=== PATIENT | male | born 1990 | race American Indian/Alaskan Native ===

== ENCOUNTER 2025-04-07 04:19 | Emergency (ER) | payer MEDICAID, SELFPAY ==
[2025-04-07 04:19] VITALS: BMI 23.3
[2025-04-07 04:40] VITALS: BP 161/95; BP 171/104; PULSE 50; RESP 17; TEMP 36.6; O2SAT 99
--- NOTE | 2025-04-07 04:54 | EKG_ITS ---
[facility] Test Date: 2025-04-07 Pat Name: GURMEET LANGFORD Department: Room: - Gender: Male Director Learning Services: : 1990 Requested By: Jerzy Mehta Order Number: [id number] Reading MD: Jerzy Mehta Measurements Intervals [place] Rate: 54 P: 47 WI: 143 QRS: 39 QRSD: 92 T: 39 QT: 359 QTc: 343 Interpretive Statements SINUS BRADYCARDIA No previous ECG available for comparison /store/S0/[id number]/ecg/[id number]
--- NOTE | 2025-04-07 04:54 | XR_ITS ---
Examination: Abdomen sonogram, Limited Date and time of exam: April 07, 2025, 0503 hours INDICATIONS: Onset right upper abdominal pain today Technique: Real-time crowell scale transabdominal sonographic images of the upper abdomen obtained. Findings: 15 mm gallstone. Normal gallbladder wall. Normal common bile duct 0.3 cm. Pancreatic head 3.1 cm Liver 17.7 cm fatty infiltration no focal liver lesions Normal hepatopedal portal venous flow. Patent IVC. IMPRESSION: Cholelithiasis, negative for cholecystitis
--- NOTE | 2025-04-07 04:54 | XR_ITS ---
Examination: PA chest single view TECHNIQUE: Upright PA chest single view Date and time: April 07, 2025, 0454 hours INDICATIONS: Chest pain nausea vomiting today. FINDINGS: Normal heart size. Lungs are clear. Osseous structures are intact. IMPRESSION: No active disease.
--- NOTE | 2025-04-07 04:55 | PD.EDRME ---
Rapid Medical Screening Exam [facility] Arrival date/time: 04/07/25 04:19 34M with history of previous meth use presents to ED with 1 day of R lower chest/RUQ pain and N/V. Chief Complaint: Abdominal Pain Vital signs: Vital Signs Temperature 97.8 F 04/07/25 04:40 Pulse Rate 50 L 04/07/25 04:40 Respiratory Rate 17 04/07/25 04:40 Blood Pressure 171/104 H 04/07/25 04:40 Pulse Oximetry (%) 99 04/07/25 04:40 Oxygen Delivery Method Room Air 04/07/25 04:40
--- NOTE | 2025-04-07 05:57 | PRELIM_ITS ---
Right upper quadrant abdominal ultrasound. April 07, 2025 0503 hours Clinical history: RUQ/epigastric pain Technique: Grayscale and color flow images of the right upper quadrant are provided. Hepatic and portal veins were also imaged with color flow images. Comparison:No prior study is available for comparison. Findings: The liver measures 17.7 cm, with increased echogenicity. No intrahepatic biliary ductal dilatation.Agallstone, measuring 1.4x1.5x0.8 cm, is seen within the neck of the gallbladder, without evidence of gallbladder wall thickening or pericholecystic fluid.The common bile duct is normal in caliber at 3 mm.The main portal vein is patent and demonstrates hepatopetal flow.The pancreas is unremarkable to the extent visualized. Impression: Cholelithiasis without evidence of acute cholecystitis. Hepatic steatosis. Report Electronically Signed By: Amish Reyes 04/07/2025 5:56:42 AM [EST]
[2025-04-07 06:33] LABS: Collection Type, Urine Clean Catch; RBC,Urine 0 /hpf (0-3); Squamous Epithelial Cell,Urine 0 /hpf (0-5); WBC,Urine 0 /hpf (0-5)
[2025-04-07 06:44] LABS: Amorphous Crystals,Urine Present (Absent); Bilirubin,Urine Negative (Negative); Blood,Urine Negative (Negative); Clarity,Urine Turbid (Clear/Hazy); Color,Urine Lt-Yellow (Lt Yel-Yel); Culture Indicated,Urine Not Indicated; Glucose, Urine Negative (Negative); Ketones,Urine Negative (Negative); Leukocyte Esterase,Urine Negative (Negative); Nitrite,Urine Negative (Negative); PH,Urine 7.0 (5.0-7.0); Protein,Urine Negative (Neg - Trace); Specific Gravity,Urine 1.021 (1.001-1.035); Urobilinogen,Urine Negative mg/dL (0.0-1.0)
[2025-04-07 06:49] LABS: Basophils # (Auto) 0.0 Thou/mm3 (0.0-0.2); Basophils % (Auto) 1 % (0-2.5); Eosinophils # (Auto) 0.1 Thou/mm3 (0.0-0.5); Eosinophils % (Auto) 1 % (0-10); Hematocrit 44.3 % (41.0-53.0); Hemoglobin 14.9 g/dL (13.5-16.0); Immature Granulocytes Auto 0.02 Thou/mm3 (0.00-0.00); Lymphocytes # (Auto) 1.5 Thou/mm3 (1.0-4.8); Lymphocytes % (Auto) 22 % (10-50); Mean Corpuscular HGB Conc 33.6 g/dl (31.0-37.0); Mean Corpuscular Hemoglobin 29.3 pg (25.0-35.0); Mean Corpuscular Volume 87 fL (80-100); Monocytes # (Auto) 0.4 Thou/mm3 (0.0-0.8); Monocytes % (Auto) 5 % (0-12); Neutrophils # (Auto) 5.0 Thou/mm3 (1.8-7.7); Neutrophils % (Auto) 71 % (37-80); Nucleated Red Blood Cell # 0.00 Thou/mm3 (0.00-0.00); Nucleated Red Blood Cell % 0 /100 WBC (0); Platelet Count 279 Thou/mm3 (140-440); RDW Standard Deviation 40.9 fL (35.1-43.9); Red Blood Count 5.09 Miln/mm3 (4.50-5.90); White Blood Count 7.1 Thou/mm3 (3.8-10.6)
[2025-04-07 06:51] LABS: Amphetamine/Methamp Scrn,U Negative (Negative); Barbiturate Screen,Urine Negative (Negative); Benzodiazepines Screen,Urine Negative (Negative); Benzoylecgonine Screen, Ur Negative (Negative); Fentanyl Screen,Urine Negative (Negative); Opiate Screen,Urine Negative (Negative); THC Screen,Urine Negative (Negative)
[2025-04-07 07:10] LABS: Alanine Aminotransferase 22 U/L (10-49); Albumin, Serum 4.4 gm/dL (3.5-5.0); Albumin/Globulin Ratio 1.6 (1.2-2.2); Alkaline Phosphatase 54 U/L (46-116); Anion Gap 6 (7-16); Aspartate Amino Transferase 16 U/L (0-34); BUN/Creatinine Ratio 9 Ratio (12-20); Bilirubin,Total 0.9 mg/dL (0.3-1.2); Blood Urea Nitrogen 8 mg/dL (9-23); Calcium 11.2 mg/dL (8.3-10.6); Calcium (Corrected) 11.2 mg/dL (8.5-10.1); Carbon Dioxide 29.8 mMol/L (20.0-31.0); Chloride 103 mMol/L (98-107); Creatinine (Component) 0.9 mg/dL (0.6-1.3); Estimated Creatinine Clearance 98.7 mL/min (>60); Globulin 2.7 gm/dL (2.3-3.5); Glucose 99 mg/dL (74-106); Lipase 38 U/L (12-53); Osmolality,Calculated 275 (275-295); Potassium 4.6 mMol/L (3.4-5.1); Sodium 139 mMol/L (136-145); Total Protein 7.1 gm/dL (5.7-8.2); Troponin I < 0.002 ng/mL (0.0-0.045); eGFR > 60 See Note
--- NOTE | 2025-04-07 07:26 | PD.EDABDPN ---
ED Abdominal Pain RME/HPI General Chief Complaint: Abdominal Pain Stated complaint: RIGHT SIDE ABD PAIN Time seen by provider: 04/07/25 07:20 Arrival date/time: 04/07/25 04:19 34-year-old male presents to the emergency department today for complaints of right upper abdominal pain Limitations: no limitations RME / HPI RME / HPI narrative: 04/07/25 04:19 34M with history of previous meth use presents to ED with 1 day of R lower chest/RUQ pain and N/V. Related Data Previous Rx's ?Medication ?Instructions ?Recorded acetaminophen 650 mg 650 mg PO Q8H PRN fever or pain 04/29/18 tablet,extended release #30 tabs ibuprofen 600 mg tablet 600 mg PO Q8H PRN fever or pain 04/29/18 #30 tabs hydrocodone 5 mg-acetaminophen 325 1 tab PO BID PRN pain #10 tabs 04/07/25 mg tablet ibuprofen 600 mg tablet 600 mg PO Q6H #30 tabs 04/07/25 ondansetron 4 mg disintegrating 4 mg PO Q8H PRN nausea and 04/07/25 tablet vomiting #10 tabs Allergies Allergy/AdvReac Type Severity Reaction Status Date / Time morphine Allergy Intermediate ICHY, Verified 07/20/17 14:32 SWELLING Review of Systems Review of Systems Systems Reviewed: All systems reviewed, normal except as documented Constitutional Constitutional: Reports system reviewed and no additional complaints, except as documented, Denies fever(s) and Denies headache(s) Eyes Eyes: Reports system reviewed and no additional complaints, except as documented and Denies blurry vision ENT Ears, Nose, Mouth, and Throat: Reports system reviewed and no additional complaints, except as documented, Denies headache(s), Denies nasal congestion and Denies nasal discharge Cardiovascular Cardiovascular: Reports system reviewed and no additional complaints, except as documented, Denies chest pain and Denies dyspnea Respiratory Respiratory: Reports system reviewed and no additional complaints, except as documented, Denies chest congestion, Denies cough and Denies dyspnea Gastrointestinal Gastrointestinal: Reports system reviewed and no additional complaints, except as documented and Reports abdominal pain Integumentary/Breasts Skin/Breast: Reports system reviewed and no additional complaints, except as documented and Denies rash Neurologic Neurologic: Reports system reviewed and no additional complaints, except as documented, Reports as per HPI and Denies headache(s) Past Medical History Past Medical History CARDIAC: Negative Congestive Heart Failure RESPIRATORY: Negative Chronic Obstructive Pulmonary Disease (COPD) GENITOURINARY: Negative Renal Disease ENDOCRINE: Negative Diabetes Mellitus Type 1 or Diabetes Mellitus Type 2 Social History SMOKING STATUS: Never smoker ED Exam General Limitations: Present no limitations General appearance: Present alert and in no apparent distress Head Head exam: Present atraumatic, normocephalic and normal inspection Eye Eye exam: Present normal appearance, PERRL and EOMI; Absent conjunctival injection ENT ENT exam: Present normal exam, normal oropharynx and mucous membranes moist Neck Neck exam: Present normal inspection, full ROM and trachea midline Chest Chest inspection: Present normal inspection and symmetric chest wall rise Respiratory Respiratory exam: Present normal lung sounds bilaterally; Absent respiratory distress Cardiovascular Cardiovascular exam: Present regular rate, normal rhythm and normal heart sounds Abdominal Exam Abdominal exam: Present soft, tenderness, normal bowel sounds and tenderness at McBurney's Point; Absent distention, guarding, rebound or rigidity Abdominal tenderness: Present RUQ Extremities Exam Extremities exam: Present normal inspection and full ROM Back Exam Back exam: Present normal inspection and full ROM Neurological Exam Neurological exam: Present alert, oriented X3 and CN II-XII intact Psychiatric Psychiatric exam: Present normal affect and normal mood Skin Skin exam: Present warm, dry, intact and normal color Course Quality Measures none Orders Category Date Time Status EKG (ED ONLY) *Do not use* NOW Care 04/07/25 04:54 Completed EKG (ED Only) Stat Exams 04/07/25 04:54 Draft US gall bladder Stat Exams 04/07/25 04:54 Completed XR chest 1V portable Stat Exams 04/07/25 04:54 Completed CBC Stat Lab 04/07/25 06:40 Completed CMP [Comprehensive Metabolic Panel] Stat Lab 04/07/25 06:40 Completed Drug Screen,Urine Stat Lab 04/07/25 05:39 Completed Lipase Stat Lab 04/07/25 06:40 Completed Troponin I Stat Lab 04/07/25 06:40 Completed Urinalysis, C/S if Indicated Stat Lab 04/07/25 05:36 Completed Vital Signs Vital signs: Vital Signs Temperature 97.8 F 04/07/25 04:40 Pulse Rate 50 L 04/07/25 04:40 Respiratory Rate 17 04/07/25 04:40 Blood Pressure 171/104 H 04/07/25 04:40 Pulse Oximetry (%) 99 04/07/25 04:40 Oxygen Delivery Method Room Air 04/07/25 04:40 O2 saturation 99% room air within normal limits PROCEDURES: EKG Interpretation #1: Date of EK04/07/25 Time of EK:22 Rate: 54 Interpretation: Interpreted by me EKG Impression: Normal sinus rhythm (Sinus bradycardia), No acute ST-T changes, No ectopy, No ischemic changes, Normal QRS, Normal intervals and Normal axis Abdominal Pain MDM MDM Narrative MDM Narrative:: 34-year-old male presents to the emergency department today for complaints of right upper abdominal pain At time of my evaluation of this patient patient already has lab work and imaging completed Lab work is unremarkable no evidence of cholecystitis liver enzymes are normal Patient has no leukocytosis Ultrasound consistent with cholelithiasis which is consistent with the patient's pain as he did have pain in the right upper quadrant Currently patient reports no pain reports he feels well Patient given a copy of his ultrasound report instructed to follow-up with his PCP for further evaluation for worsening symptoms return immediately Patient data External records reviewed:: [facility] previous records Clinical information provided by:: patient Social determinants that could affect healthcare access:: none Patient has the following chronic illnesses:: History How is presenting disease/condition affected by chronic disease/condition?: uneffected by Evaluation data The following diagnostics were reviewed and interpreted by me:: lab results, radiology exam(s) and EKG tracing(s) Lab and/or radiology exams considered but not ordered:: Labs, radiology, EKG obtained Interpretation Summary: Reviewed by me Medications / Prescriptions Medications or Prescriptions considered but not ordered:: Given Medication administrations:: Given Consultations Consultation(s) initiated? (list below): No Diagnosis Differential diagnosis abdominal pain: abdominal pain, acute appendicitis, calculus of kidney and gastroenteritis Most likely diagnosis given after review of the tests above:: Abdominal pain Admission Indicated Admission indicated?: not indicated Admission Request Was there a request for admission?: No Disposition Plan Disposition Plan: Discharge Discharge Attestation Discharge Attestation: The patient and all family members were given an opportunity to ask questions and understood the discharge instructions. Discharge instructions specifically effects, indications for sooner follow up or return to the emergency department, and the expected course of current diagnosis. Patient condition: Stable Discharge Plan Plan Patient Disposition: HOME (Self Care) Discharge Disposition comment: stable Prescriptions/Referrals Prescriptions/Med Rec: New hydrocodone-acetaminophen 5-325 mg tablet 1 tab PO BID MDD 10 PRN (Reason: pain) Qty: 10 0RF ibuprofen 600 mg tablet 600 mg PO Q6H Qty: 30 0RF ondansetron 4 mg tablet,disintegrating 4 mg PO Q8H PRN (Reason: nausea and vomiting) Qty: 10 0RF No Action acetaminophen 650 mg tablet extended release 650 mg PO Q8H PRN (Reason: fever or pain) Qty: 30 0RF Rx Instructions: swallow whole; do not crush, chew, break, dissolve, cut, or open ibuprofen 600 mg tablet 600 mg PO Q8H PRN (Reason: fever or pain) Qty: 30 0RF Rx Instructions: prn pain / fever Referrals: No Primary/Family,Physician [Primary Care Provider] - 04/08/25 Problem List Clinical Impression: Cholelithiasis Patient/Caregiver Discharge Instructions Education Materials: Treating Gallstones Additional Instructions: Please follow-up with your primary care doctor and get a referral to general surgeon for worsening symptoms return immediately Print Language: Bulgarian Stand Alone Forms: Patty Award Info., Work/School Release, Patient Portal Info Letter PA/CHIEF OF PARTY Supervising Physician PA/CHIEF OF PARTY Supervising Physician: dr ball
== END 2025-04-07 07:32 | disposition home or self-care (01) ==
PROVIDERS: Physician Assistant; Emergency Provider Emergency Medicine
DX: K80.20 Calculus of gallbladder without cholecystitis without obstruction (principal); R07.9 Chest pain, unspecified; R11.2 Nausea with vomiting, unspecified; R00.1 Bradycardia, unspecified
CPT/HCPCS: 36415; 71045; 76705; 80053; 80307; 81001; 83690; 84484; 85025; 93005; 99284

== ENCOUNTER 2025-06-24 07:40 | Day surgery (SDC) | payer MEDICAID, SELFPAY ==
[2025-06-18 08:02] VITALS: BMI 31.1
[2025-06-18 09:01] LABS: Basophils # (Auto) 0.0 Thou/mm3 (0.0-0.2); Basophils % (Auto) 1 % (0-2.5); Eosinophils # (Auto) 0.1 Thou/mm3 (0.0-0.5); Eosinophils % (Auto) 2 % (0-10); Hematocrit 46.5 % (41.0-53.0); Hemoglobin 15.9 g/dL (13.5-16.0); Immature Granulocytes Auto 0.01 Thou/mm3 (0.00-0.00); Lymphocytes # (Auto) 2.4 Thou/mm3 (1.0-4.8); Lymphocytes % (Auto) 40 % (10-50); Mean Corpuscular HGB Conc 34.2 g/dl (31.0-37.0); Mean Corpuscular Hemoglobin 29.6 pg (25.0-35.0); Mean Corpuscular Volume 87 fL (80-100); Monocytes # (Auto) 0.4 Thou/mm3 (0.0-0.8); Monocytes % (Auto) 6 % (0-12); Neutrophils # (Auto) 3.0 Thou/mm3 (1.8-7.7); Neutrophils % (Auto) 51 % (37-80); Nucleated Red Blood Cell # 0.00 Thou/mm3 (0.00-0.00); Nucleated Red Blood Cell % 0 /100 WBC (0); Platelet Count 337 Thou/mm3 (140-440); RDW Standard Deviation 39.0 fL (35.1-43.9); Red Blood Count 5.37 Miln/mm3 (4.50-5.90); White Blood Count 6.0 Thou/mm3 (3.8-10.6)
[2025-06-18 09:12] LABS: Alanine Aminotransferase 38 U/L (10-49); Albumin, Serum 4.8 gm/dL (3.5-5.0); Albumin/Globulin Ratio 1.8 (1.2-2.2); Alkaline Phosphatase 54 U/L (46-116); Anion Gap 6 (7-16); Aspartate Amino Transferase 27 U/L (0-34); BUN/Creatinine Ratio 14 Ratio (12-20); Bilirubin,Total 1.1 mg/dL (0.3-1.2); Blood Urea Nitrogen 13 mg/dL (9-23); Calcium 9.8 mg/dL (8.3-10.6); Calcium (Corrected) 9.8 mg/dL (8.5-10.1); Carbon Dioxide 28.6 mMol/L (20.0-31.0); Chloride 104 mMol/L (98-107); Creatinine (Component) 0.9 mg/dL (0.6-1.3); Estimated Creatinine Clearance 112.6 mL/min (>60); Globulin 2.6 gm/dL (2.3-3.5); Glucose 94 mg/dL (74-106); Osmolality,Calculated 277 (275-295); Potassium 4.4 mMol/L (3.4-5.1); Sodium 139 mMol/L (136-145); Total Protein 7.4 gm/dL (5.7-8.2); eGFR > 60 See Note
[2025-06-24] VITALS (8 sets, daily range): BP systolic 121–142; BP diastolic 75–102; PULSE 59–79; RESP 12–20; TEMP 36.3–36.9; O2SAT 92–100; BMI 30.7
--- NOTE | 2025-06-24 11:08 | SUR.PHASEI ---
1108: Pt. arrived with oral airway in place, vitals stable, breathing unlabored, no signs of distress, x4 dermabond sites to ABD CDI, no active bleed noted, report received from Burke ROSEN and MD Lauren.
--- NOTE | 2025-06-24 11:20 | ESOP_ITS ---
Date of Procedure 06/24/25 Pre Op Diagnosis Symptomatic cholelithiasis Post Op Diagnosis Cholelithiasis with cholecystitis Procedure Laparoscopic cholecystectomy Findings Moderately distended gallbladder with large gallstone and chronic cholecystitis Procedure Description Patient was brought into the operating room in supine position. After administration of general endotracheal anesthesia abdomen was prepped and draped in standard surgical manner. A Veress needle was inserted through the umbilicus and pneumoperitoneum was obtained up to 15 mmHg. The Veress needle was then removed, a 5 mm infraumbilical incision was made and the 5mm trocar was inserted. Laparoscopic camera was placed. Under direct visualization a laparoscopic camera a 10 mm trocar was placed in subxiphoid and two 5 mm trocars placed in right upper quadrant. The gallbladder was identified and was noted to be moderately distended with a large gallstone and chronic cholecystitis. It was retracted cephalad and laterally. Dissection started near the infundibulum of gallbladder where cystic duct and gallbladder junction clearly identified. The cystic duct was circumferentially dissected off the peritoneum and surrounding inflammatory tissue. The critical view of safety was clearly demonstrated. Cystic duct was then divided between 2 endoclips proximally and one distally. The cystic artery was similarly dissected and divided. The gallbladder was then from the liver bed using electrocautery. The gallbladder was then placed inside an Endo Catch and removed from the abdomen utilizing subxiphoid trocar site. The area was copiously and thoroughly washed and irrigated, all the fluid was suctioned and the suction fluid returned clear. Hemostasis achieved using electrocautery, also topical hemostatic agent using Surgicel powder sprayed at the gallbladder fossa to further assure hemostasis. Endoclips noted be in place and intact without any bleeding or any leakage. Hemostasis was adequate and satisfactory. The subxiphoid trocar sites fascial defect was closed with 0 Vicryl using Endo Closure device. Instruments and trocars removed, pneumoperitoneum was evacuated and the incisions closed with 4- 0 Monocryl in subcuticular fashion. Instrument needle and sponge counts were all reported to be correct X2. Patient tolerated the procedure well, was extubated, breathing spontaneously and without difficulty and was transferred to postanesthesia care in stable condition. Anesthesia GETA and local Pathology / specimen Other (Gallbladder and contents) Estimated Blood Loss 10 Condition Stable Disposition PACU Surgeon Joy Calderon MD Surgical Staff Operation Date: 06/24/25 10:15 Case Staff Anesthesiologist: Get Lauren bicycle repairman: Gladys Patel
[2025-06-24] MEDS: fentaNYL CIT INJ 50 mCg/ML AMP 2ML 25 MCG IVP ×4 (11:24→11:50)
--- NOTE | 2025-06-24 12:37 | SUR.PHASEII ---
1156: pt awake, alert, able to follow commands, breathing unlabored, dressing to abdomen clean, dry, and intact, VS stable, discharge instructions given by previous nurse, mother at bedside, report from Gayla ROSEN 1226: pt able to sit up and ambulate to wheelchair with steady gait, pt complains that pain increased with movement, Dr Lauren notified and oral pain medication given. 1237: pt able to move shoulders and take deep breaths without grunting and pass gas, pt states pain is improving, dressing to abdomen clean, dry, and intact, pt discharged with all belongings and copies of discharge paperwork.
== END 2025-06-24 12:37 | disposition home or self-care (01) ==
PROVIDERS: PCP Nurse Practitioner Family; Referring Provider Surgery; Visit Provider Surgery
PROC: 0FT44ZZ Resection of Gallbladder, Percutaneous Endoscopic Approach (ICD-10-PCS; CPT 47562; principal; 2025-06-24 10:00)
DX: K80.10 Calculus of gallbladder with chronic cholecystitis without obstruction (principal)
CPT/HCPCS: 47562; 36415; 80053; 85025; A4217; A4649; J0131; J0694; J1100; J1885; J2250; J2405; J2704; J3010; J3490; A9270